=== PATIENT | female | born 1950 | race Caucasian/White ===

== ENCOUNTER 2018-11-02 11:18 | Emergency (ER) | payer MEDICARE, OTHER, SELFPAY ==
[2018-11-02 11:18] VITALS: BP 150/92; PULSE 92; RESP 14; TEMP 36.5; O2SAT 94; BMI 31.6
--- NOTE | 2018-11-02 11:55 | ED.RN ---
WENT IN TO ASSESS PT AND SHE IS RELUCTANT TO ANSWER ANY QUESTIONS OR ALLOW AN ASSESSMENT TO BE DONE. STATES SHE JUST HAS A HEADACHE. UNABLE TO PROVIDE A MEDICATION LIST AND SAYS ALL OF HER INFORMATION IS IN THE COMPUTER. EXPLAINED THE IMPORTANCE OF VERIFYING THIS INFORMATION AND PT DIDN'T COOPERATE WITH THAT.
--- NOTE | 2018-11-02 12:13 | CT_ITS ---
STUDY: CT BRAIN WITHOUT CONTRAST REASON FOR EXAM: Female, 68 years old. 4 day history of headaches. Patient has a history of metastatic endometrial carcinoma. RADIATION DOSAGE (If Supplied By Facility): CTDIvol = ( 44.99 ) mGy, DLP = ( 829.85 ) mGycm TECHNIQUE: Transaxial CT imaging of the brain was performed without administration of intravenous contrast material. Individualized dose optimization techniques were used for this CT. COMPARISON: No relevant priors. FINDINGS: Normal soft tissue structures. Normal calvarium. There is mild cerebral atrophy with widening of the extra-axial spaces and ventricular dilatation. There is a 9 mm rounded hypodensity in the deep left parietal lobe suggestive of an old lacunar infarct. There is also evidence of an old lacunar infarct in the insular cortex of the left temporal lobe. Normal basal ganglia and thalami. Normal brainstem. Normal cerebellum. There is no intracranial hemorrhage. There are no findings of an acute ischemic infarction. Normal visualized paranasal sinuses. CT/Brain/Head without Contrast IMPRESSION: Chronic involutional changes of the brain. Electronically Signed: Prateek Palma, at 13:06 EDT , Service support ,
[2018-11-02] MEDS: 0.9% Normal Saline 1,000 ML 999 ML IV (12:57)
[2018-11-02] MEDS: proCHLORPERazine 10 MG/2 ML Vial IV (12:58)
[2018-11-02] MEDS: DiphenhydrAMINE 50 MG/ML Syringe 25 MG IV (12:58)
[2018-11-02 13:18] VITALS: PULSE 85; RESP 16; O2SAT 95
[2018-11-02 13:40] VITALS: BP 120/62
[2018-11-02] MEDS: Ketorolac 15 MG/ML Vial IV (13:47)
--- NOTE | 2018-11-02 13:48 | ED.VISSUMM ---
- ER Visit Summary Date of Service: 11/02/18 Chief Complaint: Headache History of Present Illness: The patient is a 68 F who presents with a headache that has been constant for the past 3 to 4 days. Patient states the pain has gradually gotten worse. The patient states the pain is over the right side of her head and radiates into her neck. Patient describes the pain as dull and burning. Patient states the pain is improved with certain positions. Patient admits to some nausea and vomiting. Patient denies any paresthesias or weakness. Patient denies any visual changes. Physical Examination: Vital signs are stable. Patient is afebrile. Patient is in no acute distress. Oral mucosa is pink and moist. Neck is supple. Trachea is midline. There is no JVD noted. There is some right cervical paraspinal tenderness. There is no midline tenderness. There is no bony crepitance or step-off. Heart was regular rate and rhythm. Lungs are clear and equal bilateral. Cranial nerves II through XII are intact. There are no focal motor or sensory deficits noted. Test Results: CT scan of the brain was obtained. There is no acute intracranial abnormality noted. Emergency Department Course and Treatment: Patient was given IV fluids, Compazine, and Benadryl. Patient states her headache was improving. Patient was given a dose of Toradol here. Patient was instructed to rest in a dark quiet room. Patient was instructed to follow-up with her primary care physician in 5 to 7 days. Patient understood and was agreeable with the plan. All questions were answered. Disposition: Discharge home Impression: Headache This note was generated with [employer] dictation software. It may contain incorrect words, spelling, and punctuation that were not noted in review of the chart prior to signing ED Disposition - Plan for ED Patient: Disposition: Home or Assisted Living Diagnosis: Headache Instructions: ED Cephalgia Unspecified Referrals: Nemesio Nguyen MD [Primary Care Provider] - 5-7 Days
--- NOTE | 2018-11-02 13:51 | ED.DCSUM_ITS ---
- ER Visit Summary Date of Service: 11/02/18 Chief Complaint: Headache History of Present Illness: The patient is a 68 F who presents with a headache that has been constant for the past 3 to 4 days. Patient states the pain has gradually gotten worse. The patient states the pain is over the right side of h er head and radiates into her neck. Patient describes the pain as dull and burning. Patient states the pain is improved with certain positions. Patient admits to some nausea and vomiting. Patient denies any paresthesias or weakness. Patient denies any visual changes. Physical Examination: Vital signs are stable. Patient is afebrile. Patient is in no acute distress. Oral mucosa is pink and moist. Neck is supple. Trachea is midline. There is no JVD noted. There is some right cervical paraspinal tenderness. There is no midline tenderness. There is no bony crepitance or step-off. Heart was regular rate and rhythm. Lungs are clear and equal bilateral. Cranial nerves II through XII are intact. There are no focal motor or sensory deficits noted. Test Results: CT scan of the brain was obtained. There is no acute intracranial abnormality noted. Emergency Department Course and Treatment: Patient was given IV fluids, Compazine, and Benadryl. Patient states her headache was improving. Patient was given a dose of Toradol here. Patient was instructed to rest in a dark quiet room. Patient was instructed to follow-up with her primary care physician in 5 to 7 days. Patient understood and was agreeable with the plan. All questions were answered. Disposition: Discharge home Impression: Headache This note was generated with [employer] dictation software. It may contain incorrect words, spelling, and punctuation that were not noted in review of the chart prior to signing ED Disposition - Plan for ED Patient: Disposition: Home or Assisted Living Diagnosis: Headache Instructions: ED Cephalgia Unspecified Referrals: Nemesio Nguyen MD [Primary Care Provider] - 5-7 Days
[2018-11-02 14:01] VITALS: BP 120/62; PULSE 85; RESP 16; O2SAT 95
== END 2018-11-02 14:03 | disposition home or self-care (01) ==
PROVIDERS: Emergency Provider Emergency Medicine; Family Provider Family Medicine; PCP Family Medicine
DX: R51 Headache (principal); R11.2 Nausea with vomiting, unspecified; M54.2 Cervicalgia; Z85.05 Personal history of malignant neoplasm of liver; Z85.118 Personal history of other malignant neoplasm of bronchus and lung
CPT/HCPCS: 70450; 96361; 96374; 96375; 99284; J7030; A4216

== ENCOUNTER 2018-11-22 15:05 | Inpatient (IN) | payer MEDICARE, OTHER, SELFPAY ==
[2018-11-22] VITALS (12 sets, daily range): BP systolic 83–120; BP diastolic 65–81; PULSE 100–105; RESP 16–33; TEMP 36.3–36.9; O2SAT 83–96; BMI 29.2; BMI 31.6; BMI 31.7
--- NOTE | 2018-11-22 | IMM_PTH ---
PATIENT: LALO PUENTE LOC: PCU U#:[id number] AGE/SX: 68/F ROOM: [facility] RE11/22/[address]: Dr. Shyann Sotelo MD : 1950 BED: 1 DIS: 11/24/2018 SPEC #: [id number] RECD: 11/24/18 10:25 STATUS: SOURizwan REQ #: [id number] VEDA: 11/22/18 00:[address]: Shyann Sotelo DEPT: IMMUNOHISTOCHEMISTRY RECD BY: Deepa Fermin ENTERED: 11/24/18 10:28 SP TYPE: IMMUNO OTHR DR: DO Dr. Nemesio Santiago MD Dr. Nicholas F Kotsonis, MD Tissues: THORACIC FLUID Procedures: RCC (add) NAPSIN A (add) Jay Ret (add) CD20 (add) CD3 (add) CD45 (add) CD5 (add) CD79A (add) CK20 (add) CK5-6 (add) CK7 (add) CK8 (add) HEP PAR (add) MACRO (add) IN (add) TTF1 (add) Vimentin (add) Pankeratin (add) P40 (add) ER (initial) PHYSIC[facility] [place] [id number] SPECIMEN INFORMATION: Tissue Source: Thoracentesis fluid Clinical Info: Acute renal failure, pleural effusion Specimen Number: [id number] CPT code: 41696, 32580 x19 METHODOLOGY: Deparaffinized sections of prefer/formalin-fixed tissue or PAP/DQ stained slides are incubated with monoclonal/polyclonal antibodies/oligonucleotide probes. Localization is made via biotin free immunoperoxidase method. Appropriate controls are performed and reacted as expected. Results on target cell population are indicated in the following table: RESULTS: ANTIBODY / CLONE RESULT ER (6F11) negative IN (1E2) negative AE1-3 (AE1/AE3/PCK26) negative (positive in mesothelial cells) CK7 (OV-TL12/30) negative (positive in mesothelial cells) CK8 (61sqfnI73) negative (positive in mesothelial cells) CK20 (KS20.8) negative (positive in mesothelial cells) CD45 (RP2/18) negative (positive in lymphocytes) Vimentin (V9) negative TTF-1 (8G7G3/1) negative Napsin A (Rabbit Polyclonal) negative HepPar (OCh1E5) negative RCC (PN-15) negative CALRET (polyclonal) negative (positive in mesothelial cells) CK5-6 (D5 & 1684) negative (positive in mesothelial cells) P40 (BC28) negative CD3 (PS1) negative (positive in small lymphocytes) CD5 (SP10) negative (positive in small lymphocytes) CD20 (L26) negative CD79a (11E3) negative Macro (HAM-56) negative These tests were developed and their performance characteristics determined by [facility]. They may not have been cleared or approved by the U.S. Food and Drug Administration. The FDA has determined that such clearance or approval is not necessary. INTERPRETATION: Thoracentesis fluid: A few degenerated epithelioid cells are noted. See comment. SJ:luda 11/29/18 IHC is noncontributory. Case has been reviewed in consultation with Dr. Hamlin who concurs with the above diagnosis. IDC:AM
--- NOTE | 2018-11-22 | FLU_PTH ---
PATIENT: LALO PUENTE LOC: [facility] U#:[id number] AGE/SX: 68/F ROOM: [facility] RE11/22/[address]: Dr. Shyann Sotelo MD : 1950 BED: 1 DIS: 11/24/2018 SPEC #: [id number] RECD: 11/22/18 18:50 STATUS: GORDON REEbony #: [id number] VEDA: 11/22/18 00:[address]: Shyann Sotelo DEPT: CYTOLOGY RECD BY: Jayesh Parekh ENTERED: 11/23/18 09:06 SP TYPE: Fluid OTHR DR: MD Dr. Dave Anderson MD Tissues: THORACIC FLUID Procedures: Special Stain Group II Surgery Specimen Level IV Cytospin Fluid HEADER OPERATION: Thoracentesis PRE-OP DIAGNOSIS: Acute renal failure and pleural effusion TISSUE SUBMITTED: Thoracentesis fluid for cytology DIAGNOSIS CYTOLOGY Thoracentesis fluid for cytology (cytospin and cell block): A few degenerated epithelioid cells are noted. See comment. SIXTO:luda 11/29/18 COMMENT Immunohistochemistry ([id number]) is noncontributory. 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 Correlation with clinical, radiologic findings and appropriate follow up are necessary. Case has been reviewed in consultation with Dr. Hamlin who concurs with the above diagnosis. IDC:AM CYTOLOGY STUDY Slides are reviewed. CYTOLOGY GROSS Received is 12 ml of red cloudy fluid labeled with the patient's name and and designated per the requisition as thoracic fluid. Submitted for cytology preparation including cell block. / CC:cc 11/23/18 TC:?Cannot code CPT: 45341, 25171
--- NOTE | 2018-11-22 15:32 | EKG12_ITS ---
Test Reason : CP ADMIT Blood Pressure : / mmHG Vent. Rate : 099 BPM Atrial Rate : 099 BPM P-R Int : 150 ms QRS Dur : 080 ms QT Int : 364 ms P-R-T Axes : 034 000 064 degrees QTc Int : 467 ms Normal sinus rhythm Inferior infarct , age undetermined Anteroseptal infarct , age undetermined Abnormal ECG Confirmed by TAQUERIA CORTÉS, ALTA ([id number]), food editor REINALDO MATT ([id number]) on 11/26/2018 7:06:26 AM Referred By: Dave Hogan Confirmed By:ALTA MENG MD
--- NOTE | 2018-11-22 15:45 | RAD_ITS ---
STUDY: X-RAY CHEST REASON FOR EXAM: Female, 68 years old. Shortness of breath, progressively getting worse. TECHNIQUE: Single frontal view of the chest. COMPARISON: None. FINDINGS: There is low volume to the left lung field. There are at least 2 pulmonary nodules projected over the left upper lung, the largest of which measures approximately 3 cm in widest diameter and is projected over the left upper lobe. There is a large right pleural effusion with compression atelectasis of the right upper, right middle and right lower lobes. There is cardiomegaly. Normal mediastinum and daisy. Normal visualized pulmonary arteries. There is atherosclerotic calcification of the aortic arch with tortuosity. Normal visualized thoracic spine. Normal visualized ribs, clavicles, and shoulders. There is no demonstrated abnormality of the visualized soft tissue structures of the upper abdomen. RAD/Chest 1 View (Portable) IMPRESSION: Large right pleural effusion with at least 2 pulmonary nodules projected over the left lung. Findings are highly suspicious for metastatic disease. If the patient does not have a known primary, a chest CT with contrast would be appropriate for further delineation of these findings. Electronically Signed: Nimesh Bautista MD at 15:59 EDT , Service support ,
--- NOTE | 2018-11-22 15:46 | ED.DCSUM_ITS ---
- ER Visit Summary Date of Service: 11/22/18 Chief Complaint: Shortness of breath History of Present Illness: The patient is a 68 F with what sounds like endometrial cancer and metastases to lung and liver presents with shortness of breath. She underwent radiation but no chemotherapy. Shortness of breath has been progressing over the past few days. She has no fever or chills. She has cough which is mostly nonproductive. She has bilateral lower extremity edema she has been also somewhat chronic. Physical Examination: She appears in some distress Pale conjunctiva Dry mucous membranes, no obvious facial deformity No C-spine tenderness supple neck. Regular rate and rhythm without any obvious murmurs Course lungs bilaterally speaking in 2-3 word sentences, somewhat diminished breath sounds on the right Abdomen soft and nontender no guarding or rebound Moves all extremities without any difficulty or pain. Skin is quite a bit of pallor No gross focal deficit Emergency Department Course and Treatment: Patient is found to have a right pleural effusion, this was drained by surgery, I reevaluated her and her shortness of breath improved, I looked at the chest x- ray which showed significant improvement, however patient continued to feel significantly weak, she was slightly hypotensive, improved with fluids, patient will be admitted. Treatment Plan: Disposition: Admit stable condition Impression: Pleural effusion Metastatic endometrial cancer This note was generated with [employer] dictation software. It may contain incorrect words, spelling, and punctuation that were not noted in review of the chart prior to signing ED Disposition - Plan for ED Patient: Referrals: Nemesio Nguyen MD [Primary Care Provider] -
[2018-11-22] MEDS: Ondansetron 4 MG/2 ML Vial IV (16:09)
[2018-11-22 16:18] LABS: ALB/GLOB Ratio 0.5 RATIO (0.9-2.4); AST(SGOT) 177 U/L (15-37); Alanine Aminotransfer ALT/SGPT 36 U/L (13-56); Alkaline Phosphatase 983 U/L (45-117); Anion Gap 12 (5-15); BUN 44 mg/dL (7-18); BUN/Creat Ratio 17.2 RATIO (10-20); Calcium,Total 8.7 mg/dL (8.5-10.1); Chloride 93 mmol/L (98-107); Creatinine, Serum 2.56 mg/dL (0.55-1.02); EST Glomerular Filtration Rate 20 mL/min (>60); Est Glom Filt Rate - Afr Amer 24 mL/min (>60); Estimated Creatinine Clearance 23.06 ml/min; Globulin 4.3 g/dL (2.2-4.2); Glucose 114 mg/dL (74-106); Potassium 3.4 mmol/L (3.5-5.1); Protein, Total 6.3 g/dL (6.4-8.2); Sodium Level 130 mmol/L (136-145)
[2018-11-22 16:30] LABS: Hematocrit 30.8 % (37-47); Hemoglobin 9.8 g/dl (12.0-15.0); Mean Corp Hgb Conc 31.8 g/gl (32-36); Mean Corpuscular Hgb 22.8 pg (27.0-32.0); Mean Corpuscular Volume 71.8 fL (81-99); Mean Platelet Vol. 9.1 fl (6.2-12.0); Platelet Count 119 K/mm3 (150-450); RBC Distribution Width CV 21.2 % (11.6-14.6); RBC Distribution Width SD 53.1 fl (35.1-43.9); Red Blood Count 4.29 M/mm3 (4.2-5.4)
[2018-11-22 16:34] LABS: International Normalized Ratio 1.4; Prothrombin Time (Protime)PT. 16.7 SECONDS (11.7-14.9)
[2018-11-22 16:39] LABS: Differential Indicated MANUAL DIFF; POSITIVE COUNT NO; POSITIVE DIFFERENTIAL NO; POSITIVE MORPHOLOGY YES
[2018-11-22 16:48] LABS: Mucous, Urine 0 SEEN /hpf (<or=2+); Red Blood Cells-Urine 0 SEEN /hpf (0-5)
[2018-11-22 17:06] LABS: Color, Urine Amber (Yellow); Glucose, Dipstick Normal (Normal); Ketone-Dipstick 5 mg/dl (Negative); Leukocyte Esterase-Dipstick 25 /ul (Negative); Nitrite-Dipstick Negative (Negative); Occult Blood-Urine 10 /ul (Negative); Protein-Dipstick 30 mg/dl (Negative); Specific Gravity, Urine 1.025 (1.002-1.030); Urine Clarity Cloudy (Clear); Urine Urobilinogen 8 mg/dl (Normal)
[2018-11-22 17:07] LABS: Urine Bilirubin Dipstick 3 mg/dL (Negative)
[2018-11-22 17:11] LABS: Amorphous Sediment 1+; Bacteria 4+ /hpf (None Seen); Squamous Epithelial Cells - UA 0-5 SEEN /hpf (5-10); White Blood Cells 0-5 SEEN /hpf (0-5)
[2018-11-22 17:13] LABS: Lymphocyte 6 % (19-41); Metamyelocyte 7 % (0-1); Monocyte 17 % (0-10); Myelocyte 4 (0-0); Neutrophil-Band 19 % (0-5); Neutrophil-Segmented 47 % (47-70); Total Cells Counted 100 (MANUAL DIFF)
[2018-11-22 17:14] LABS: Absolute Nucleated RBC Count 0.18 10^3/uL (0-5); NRBC Flagged by Analyzer 1.2 % (0-5)
[2018-11-22 17:16] LABS: Absolute Neutrophil Count 11.6 X10^3/uL (2.0-7.7); Neutrophil # 11.55 X10^3/uL (2.7-7.7)
[2018-11-22 17:17] LABS: Anisocytosis 1+; Hypochromasia 1+; Microcytosis 3+; Platelet Estimate SLT DEC (ADEQ); Polychromasia RARE
--- NOTE | 2018-11-22 18:10 | RAD_ITS ---
STUDY: X-RAY CHEST REASON FOR EXAM: Female, 68 years old. Post thoracentesis TECHNIQUE: Frontal portable view of the chest was performed COMPARISON: 22 November 2018 FINDINGS: Right pleural effusion has significantly decreased and is likely now only moderate in extent with predominately subdiaphragmatic distribution. There is no pneumothorax. There is no left pleural effusion. There is a left upper lobe mass. The second more ill-defined opacity in the left midlung zone is not as well seen. RAD/Chest 1 View (Portable) IMPRESSION: 1. Marketed reduction in the right pleural effusion. 2. No pneumothorax. 3. Left upper lung focal opacity, unknown etiology, refer to CT chest with contrast for definitive diagnosis. Differential diagnosis includes benign entities, such as pneumonia, loculated fluid, versus malignant, such as lung cancer. Electronically Signed: Sheron Pope, at 18:56 EDT Tel , Service support ,
--- NOTE | 2018-11-22 18:18 | PCM.OPRPT ---
Report of Operation Date of Procedure: 11/22/18 Pre-Operative Diagnosis: right pleural effusion, metastatic cancer (endometrial) Post-Operative Diagnosis: same Surgery/Procedure Performed:: right thoracocentesis Description of Surgical Findings:: drainage of 1 liter of serosanguinous fluid Type of Anesthesia:: Local - 2% xylocaine Specimen's removed: right pleural fluid Estimated Blood Loss (mL): minimal Fluids Replaced: 100 cc RL Description of Procedure: After informed consent was obtained, the patient was placed in the upright sitting position. After proper time out protocol was followed, anatomical landmarks were identified for location of catheter insertion site. The skin and subcutaneous tissues at the site was infiltrated with local anesthetic. A small skin incision was made with an 11 blade scalpel. An needle trocar with 18 Fr catheter was then inserted into the pleural space and there was aspiration of pleural fluid. The catheter was then threaded to the dependent portion of the thoracic cavity. The pleural fluid was then drained - 1000 ml of serosanguinous fluid was obtained. The catheter was removed and dressing was applied to the area. Patient tolerated procedure well. - Complications none noted
--- NOTE | 2018-11-22 18:48 | ED.RN ---
PT'S HEART RATE ACCELERATED TO 190 DOWN TO [address] PATEL WAS INFORMED, EKG OBTAINED. PT CURRENTLY RESTING QUIETLY WITH PULSE OF 100.
[2018-11-22 18:55] LABS: Cytology, Body Fluid / CSF SEE PATHOLOGY REPORT
--- NOTE | 2018-11-22 20:00 | EKG12_ITS ---
Test Reason : Blood Pressure : / mmHG Vent. Rate : 101 BPM Atrial Rate : 101 BPM P-R Int : 150 ms QRS Dur : 080 ms QT Int : 308 ms P-R-T Axes : 024 -04 053 degrees QTc Int : 399 ms Sinus tachycardia Inferior infarct , age undetermined Anteroseptal infarct , age undetermined Abnormal ECG Confirmed by TAQUERIA CORTÉS, ALTA ([id number]), visual effects editor REINALDO MATT ([id number]) on 11/26/2018 6:27:14 AM Referred By: Dave Hogan Confirmed By:ALTA MENG MD
--- NOTE | 2018-11-22 20:06 | EKG12_ITS ---
Test Reason : CP/SOB Blood Pressure : / mmHG Vent. Rate : 101 BPM Atrial Rate : 101 BPM P-R Int : 146 ms QRS Dur : 082 ms QT Int : 334 ms P-R-T Axes : 033 013 -09 degrees QTc Int : 433 ms Sinus tachycardia Septal infarct , age undetermined Cannot rule out Inferior infarct , age undetermined Abnormal ECG Confirmed by TAQUERIA CORTÉS, ALTA ([id number]), communications editor REINALDO MATT ([id number]) on 11/26/2018 6:26:54 AM Referred By: Dave Hogan Confirmed By:ALTA MENG MD
--- NOTE | 2018-11-22 20:10 | PCM.HP.STD ---
Problem List (1) Depression Status: Acute (2) GERD (gastroesophageal reflux disease) Status: Acute (3) Endometrial cancer Status: Acute (4) Pleural effusion Status: Acute History of Present Illness Date of Admission: 11/22/18 Chief Complaint: Shortness of breath The patient is a 68 year old F who has a history of endometrial cancer that had been resected and she had undergone chemotherapy, presents with shortness of breath, fatigue, weakness. She has had metastasis of her original endometrial cancer with extensive lesions in the liver and in the left lung. She also had metastasis to the vaginal cuff that she has been having significant vaginal bleeding. She is undergone further biopsies and is found to have a cancer that would make her a candidate for immunotherapy which is somewhat tolerable. She also completed radiation to her liver. This radiation that may explain the pleural effusion which was drained in the ER by Dr. Maza prior to admission. This was sent down to pathology for cytology. In the ER she was found to have a leukocytosis as well as anemia with an MCV of 71.8, of note her alk phos is 983, her AST is 177, her total bilirubin is 1.6, and her INR is 1.4 though she is not on Coumadin. Also she has a new onset renal failure with a creatinine of 2.56, and she is expressing significant fatigue and weakness for the last several days. Past Medical History Allergies No Known Allergies Allergy (Verified 11/22/18 15:06) Home Medications: Ambulatory Orders Medication Instructions Recorded Diclofenac [Voltaren] 75 mg PO BID 11/22/18 Escitalopram Oxalate [Lexapro] 20 mg PO DAILY 11/22/18 Famotidine [Pepcid] 20 mg PO QHS PRN 11/22/18 Gabapentin [Neurontin] 800 mg PO BID 11/22/18 Multivitamin [Multivitamins] 1 each PO DAILY 11/22/18 Oxycodone HCl/Acetaminophen 1 each PO Q8H PRN 11/22/18 [Percocet 5-325 mg Tablet] Oxycodone [Oxyir] 5 mg PO Q8H PRN PRN 11/22/18 Prochlorperazine Maleate 10 mg PO Q6H PRN 11/22/18 [Compazine] Senna/Docusate Sodium [Senokot-S, 2 tablet PO QHS 11/22/18 Denisse-Colace] Surgical History: hysterectomy Smoking Status: Never smoker Alcohol: None Drugs: None - *Family History Maternal History Items: No pertinent history Paternal History Items: No pertinent history Review of Systems Constitutional: Reports: Weakness, Fatigue. Denies: Chills, Fever, Weight Change HEENT: Denies: Head Aches, Sinus Congestion, Sinus Drainage Cardiovascular: Denies: Chest Pain, Palpitations Respiratory: Reports: Shortness of Breath. Denies: Cough, Shortness of breath at rest, Sputum production Gastrointestinal: Denies: Abdominal Pain, Nausea, Vomiting Genitourinary: Denies: Dysuria Musculoskeletal: Denies: Joint Pain, Joint Tenderness Skin: Denies: Rash, Wounds Neurological: Denies: Numbness, Tingling, Focal weakness Psychiatric: Denies: Anxiety, Depression Hematologic/ Lymphatic: Denies: Easy Bruising, Easy Bleeding VTE Information - Inpt Only VTE Present on Admission: No Patient Problems: Active and Suspected Problems Depression (Acute) GERD (gastroesophageal reflux disease) (Acute) Endometrial cancer (Acute) Pleural effusion (Acute) - Physical Exam General: Alert, Oriented x3, Cooperative, No apparent distress, - - Slow in her responses, pale HEENT: Atraumatic, PERRLA, EOMI, Normocephalic Oral: Dry Mucosa Neck: Supple, No JVD Lungs: Clear to auscultation, Normal air movement, No rhonchi, No wheeze, No rales, Diminished Cardiovascular: Regular rate, Regular Rhythm, Normal S1, Normal S2, No murmurs Abdomen: Soft, Non Tender, Non-Distended, No Hepato-splenomegaly Extremities: Capillary Refill Less than 3 Seconds, Edema - 1+ nonpitting Skin: No rashes, No breakdown Neurological: Sensory exam intact to light touch and pain, - - 4-/5 b/l LE Psych/Mental Status: Appropriate, Flat Affect Vital Signs Temp Pulse Resp BP Pulse Ox 97.5 F L 101 H 16 95/65 96 11/22/18 15:07 11/22/18 19:00 11/22/18 19:00 11/22/18 19:00 11/22/18 19:00 Oxygen Flow Rate (L/min) 4 Oxygen Delivery Method Nasal Cannula Weight: 196 lb 6.91 oz Body Mass Index (BMI) 31.6 Laboratory Tests Past 24 Hrs 11/22/18 11/22/18 11/22/18 15:45 15:45 15:45 WBC 15.0 H RBC 4.29 Hgb 9.8 L Hct 30.8 L MCV 71.8 L MCH 22.8 L MCHC 31.8 L RDW 21.2 H RDW Differential 53.1 H Plt Count 119 L MPV 9.1 Neut % (Auto) Not Reportable Absolute Neuts (auto) 11.6 H Absolute Lymphs (auto) 0.90 Total Counted 100 Neutrophils % (Manual) 47 Band Neutrophils % 19 H Lymphocytes % (Manual) 6 L Monocytes % (Manual) 17 H Metamyelocytes % 7 H Myelocytes % 4 H Nucleated RBC % 1.2 Platelet Estimate SLT DEC Polychromasia RARE Hypochromasia 1+ Anisocytosis 1+ Microcytosis 3+ Absolute Retic 0.18 PT 16.7 H INR 1.4 APTT 36.0 Sodium 130 L Potassium 3.4 L Chloride 93 L Carbon Dioxide 25.0 Anion Gap 12 BUN 44 H Creatinine 2.56 H Estim Creat Clear Calc 23.06 Est GFR (MDRD) Af Amer 24 L Est GFR (MDRD) Non-Af 20 L BUN/Creatinine Ratio 17.2 Glucose 114 H Calcium 8.7 Total Bilirubin 1.60 H AST 177 H ALT 36 Alkaline Phosphatase 983 H Troponin I < 0.015 Total Protein 6.3 L Albumin 2.0 L Globulin 4.3 H Albumin/Globulin Ratio 0.5 L Urine Color Urine Clarity Urine pH Ur Specific [place] Urine Protein Urine Glucose (UA) Urine Ketones Urine Occult Blood Urine Nitrite Urine Bilirubin Urine Urobilinogen Ur Leukocyte Esterase Urine RBC Urine WBC Ur Squamous Epith Cells Amorphous Sediment Urine Bacteria Urine Mucus Miscellaneous Cytology Blood Type Antibody Screen 11/22/18 11/22/18 11/22/18 15:45 16:45 17:50 WBC RBC Hgb Hct MCV MCH MCHC RDW RDW Differential Plt Count MPV Neut % (Auto) Absolute Neuts (auto) Absolute Lymphs (auto) Total Counted Neutrophils % (Manual) Band Neutrophils % Lymphocytes % (Manual) Monocytes % (Manual) Metamyelocytes % Myelocytes % Nucleated RBC % Platelet Estimate Polychromasia Hypochromasia Anisocytosis Microcytosis Absolute Retic PT INR APTT Sodium Potassium Chloride Carbon Dioxide Anion Gap BUN Creatinine Estim Creat Clear Calc Est GFR (MDRD) Af Amer Est GFR (MDRD) Non-Af BUN/Creatinine Ratio Glucose Calcium Total Bilirubin AST ALT Alkaline Phosphatase Troponin I Total Protein Albumin Globulin Albumin/Globulin Ratio Urine Color Bridgett Urine Clarity Cloudy Urine pH 5.0 Ur Specific [place] 1.025 Urine Protein 30 H Urine Glucose (UA) Normal Urine Ketones 5 H Urine Occult Blood 10 H Urine Nitrite Negative Urine Bilirubin 3 H Urine Urobilinogen 8 H Ur Leukocyte Esterase 25 H Urine RBC 0 SEEN Urine WBC 0-5 SEEN Ur Squamous Epith Cells 0-5 SEEN Amorphous Sediment 1+ Urine Bacteria 4+ Urine Mucus 0 SEEN Miscellaneous Cytology Pending Blood Type A POSITIVE Antibody Screen NEGATIVE Assessment/Plan All Active Problems Depression (Acute) GERD (gastroesophageal reflux disease) (Acute) Endometrial cancer (Acute) Pleural effusion (Acute) 1. Endometrial cancer s/p resection with metastatic disease to the vaginal cuff, left lung and liver/acute hypoxic respiratory failure secondary to right pleural effusion s/p thoracentesis -She has undergone radiation of the liver which she finished -Candidate for immunotherapy per my discussion with Dr. Engel -S/p therapeutic thoracentesis in the ER, sent for cytology -Wean O2 as able -C/w IVF@125cc for her transient hypotension after the procedure, she also had few second episode of SVT and is therefore admitted to PCU with a phos and mag pending 2. Acute renal failure unknown etiology/Iron deficiency anemia - She received a 500 cc bolus in the ER - C/w IVF - Per oncology, will proceed with 3 daily doses of venofer hemoglobin today is 9.8 with an MCV of 71.8. - Will monitor creatinine, if necessary can obtain a renal ultrasound if creatinine stays elevated 3. Elevated LFTs -AST is 177 with total bilirubin 1.6 and an alkaline phosphatase of 983 -Repeat CMP in a.m. likely -Likely related to her liver met and recent radiation 4. Leukocytosis -White blood cell count is 15 -Probably reactive however there is 25 leukocyte esterase and 4+ bacteria seen on her urine sample -We will send for culture but hold off on antibiotics until necessary 5. GERD -Stable -Continue with Pepcid DVT: Lovenox Code Visit Inpatient E&M: 99060 Init Hosp L3
[2018-11-22] MEDS: oxyCODONE 5 MG Tablet PO (20:43)
[2018-11-22] MEDS: 0.9% Normal Saline 1,000 ML 125 ML IV (20:44)
[2018-11-22 20:56] LABS: Magnesium 2.5 mg/dL (1.6-2.6); Phosphorus 3.8 mg/dL (2.5-4.9)
[2018-11-22] MEDS: Escitalopram Oxalate 20 MG Tablet PO (23:27)
[2018-11-22] MEDS: Gabapentin 800 MG Tablet PO (23:28)
[2018-11-23] VITALS (13 sets, daily range): BP systolic 103–127; BP diastolic 53–79; PULSE 97–157; RESP 14–20; TEMP 36.4–36.8; O2SAT 92–96
[2018-11-23] MEDS: oxyCODONE 5 MG Tablet PO ×2 (01:17→12:55)
[2018-11-23 03:57] LABS: ALB/GLOB Ratio 0.5 RATIO (0.9-2.4); AST(SGOT) 166 U/L (15-37); Alanine Aminotransfer ALT/SGPT 34 U/L (13-56); Albumin, Serum 1.8 g/dL (3.2-5.0); Alkaline Phosphatase 869 U/L (45-117); Anion Gap 10 (5-15); BUN 47 mg/dL (7-18); Calcium,Total 8.4 mg/dL (8.5-10.1); Chloride 98 mmol/L (98-107); Creatinine, Serum 2.14 mg/dL (0.55-1.02); EST Glomerular Filtration Rate 24 mL/min (>60); Est Glom Filt Rate - Afr Amer 30 mL/min (>60); Estimated Creatinine Clearance 23.88 ml/min; Globulin 3.9 g/dL (2.2-4.2); Glucose 89 mg/dL (74-106); Potassium 3.5 mmol/L (3.5-5.1); Protein, Total 5.7 g/dL (6.4-8.2); Sodium Level 134 mmol/L (136-145)
[2018-11-23 04:48] LABS: Hematocrit 27.7 % (37-47); Hemoglobin 8.8 g/dl (12.0-15.0); Mean Corp Hgb Conc 31.8 g/gl (32-36); Mean Corpuscular Hgb 22.6 pg (27.0-32.0); Mean Corpuscular Volume 71.2 fL (81-99); Platelet Count 93 K/mm3 (150-450); RBC Distribution Width CV 21.3 % (11.6-14.6); RBC Distribution Width SD 52.7 fl (35.1-43.9); Red Blood Count 3.89 M/mm3 (4.2-5.4); White Blood Count 13.5 K/mm3 (4.4-11.0)
[2018-11-23 04:50] LABS: Differential Indicated MANUAL DIFF; POSITIVE COUNT NO; POSITIVE DIFFERENTIAL NO; POSITIVE MORPHOLOGY YES
[2018-11-23 05:05] LABS: Lymphocyte 3 % (19-41); Metamyelocyte 5 % (0-1); Monocyte 9 % (0-10); Myelocyte 5 (0-0); Neutrophil-Band 15 % (0-5); Neutrophil-Segmented 63 % (47-70); Total Cells Counted 100 (MANUAL DIFF)
[2018-11-23 05:07] LABS: Absolute Lymphocyte Count 0.41 X10^3/ul (0.83-4.51); Absolute Neutrophil Count 10.7 X10^3/uL (2.0-7.7)
[2018-11-23 05:08] LABS: Anisocytosis RARE; Hypochromasia RARE; Microcytosis RARE; Platelet Estimate MOD DEC (ADEQ)
[2018-11-23] MEDS: 0.9% Normal Saline 1,000 ML 125 ML IV ×3 (05:22→21:41)
--- NOTE | 2018-11-23 09:43 | PCM.PN.HOSP ---
Patient Problems: Active and Suspected Problems Depression (Acute) GERD (gastroesophageal reflux disease) (Acute) Endometrial cancer (Acute) Pleural effusion (Acute) Subjective: Patient seen and examined. She was admitted with a complaint of shortness of breath. She just had right-sided thoracentesis for right pleural effusion due to metastatic endometrial cancer with drainage of 1 L of serosanguinous fluid. Subsequently started feeling short of breath and so was admitted. Patient seen and examined this morning. She is very lethargic. She had no active complaints. She denied any fever or chills and says shortness of breath that improved. She denied any chest pain or palpitations, dizziness, diarrhea or vomiting. 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 Labs and vitals reviewed. Vitals/I&O's: Vital Signs Temp Pulse Resp BP Pulse Ox 97.8 F 97 16 114/68 94 11/23/18 03:37 11/23/18 07:14 11/23/18 03:37 11/23/18 03:37 11/23/18 03:37 Oxygen Flow Rate (L/min) 3 Oxygen Delivery Method Nasal Cannula Weight: 196 lb 6.91 oz Body Mass Index (BMI) 31.6 Intake and Output for Last 24 Hours 11/21/18 11/22/18 11/23/18 23:59 23:59 23:59 Intake Total 950 / 950 910 / 910 Output Total 0 / 0 0 / 0 Balance 950 / 950 910 / 910 General: Alert, Cooperative, Lethargic HEENT: Atraumatic, PERRLA, EOMI, Normocephalic, - - jaundiced sclera Oral: Dry Mucosa Neck: Supple, No JVD, Negative Carotid Bruits Lungs: - - decreased breath sounds bibasally, no wheezes. Few crackles bibasally. On 2L of oxygen. Cardiovascular: Regular rate, Regular Rhythm, Normal S1, Normal S2, No murmurs Abdomen: Bowel Sounds Present, Soft, Non Tender, Non-Distended, No Hepato-splenomegaly Extremities: No cyanosis, No edema, Capillary Refill Less than 3 Seconds Skin: No rashes, No breakdown Musculoskeletal: No Tenderness to Palpation of Joints or Extremities Lymphatic: No Cervical, Supraclavicular, or Inguinal Adenopathy Neurological: Cranial nerves II-XII grossly intact, Neuro grossly intact, Motor Exam 5/5 strength throughout Psych/Mental Status: - - very weak and lethargic Laboratory Results 11/22/18 15:45: WBC 15.0 H, RBC 4.29, Hgb 9.8 L, Hct 30.8 L, MCV 71.8 L, MCH 22.8 L, MCHC 31.8 L, RDW 21.2 H, RDW Differential 53.1 H, Plt Count 119 L, MPV 9.1, Neut % (Auto) Not Reportable, Absolute Neuts (auto) 11.6 H, Absolute Lymphs (auto) 0.90, Total Counted 100, Neutrophils % (Manual) 47, Band Neutrophils % 19 H, Lymphocytes % (Manual) 6 L, Monocytes % (Manual) 17 H, Metamyelocytes % 7 H, Myelocytes % 4 H, Nucleated RBC % 1.2, Platelet Estimate SLT DEC, Polychromasia RARE, Hypochromasia 1+, Anisocytosis 1+, Microcytosis 3+, Absolute Retic 0.18 11/22/18 15:45: PT 16.7 H, INR 1.4, APTT 36.0 11/22/18 15:45: Sodium 130 L, Potassium 3.4 L, Chloride 93 L, Carbon Dioxide 25.0, Anion Gap 12, BUN 44 H, Creatinine 2.56 H, Estim Creat Clear Calc 23.06, Est GFR (MDRD) Af Amer 24 L, Est GFR (MDRD) Non-Af 20 L, BUN/Creatinine Ratio 17.2, Glucose 114 H, Calcium 8.7, Total Bilirubin 1.60 H, AST 177 H, ALT 36, Alkaline Phosphatase 983 H, Troponin I < 0.015, Total Protein 6.3 L, Albumin 2.0 L, Globulin 4.3 H, Albumin/Globulin Ratio 0.5 L 11/22/18 15:45: Blood Type A POSITIVE, Antibody Screen NEGATIVE 11/22/18 16:45: Urine Color Bridgett, Urine Clarity Cloudy, Urine pH 5.0, Ur Specific [place] 1.025, Urine Protein 30 H, Urine Glucose (UA) Normal, Urine Ketones 5 H, Urine Occult Blood 10 H, Urine Nitrite Negative, Urine Bilirubin 3 H, Urine Urobilinogen 8 H, Ur Leukocyte Esterase 25 H, Urine RBC 0 SEEN, Urine WBC 0-5 SEEN, Ur Squamous Epith Cells 0-5 SEEN, Amorphous Sediment 1+, Urine Bacteria 4+, Urine Mucus 0 SEEN 11/22/18 17:50: Miscellaneous Cytology Pending 11/22/18 20:20: Phosphorus 3.8, Magnesium 2.5, Troponin I < 0.015 11/22/18 23:05: Troponin I < 0.015 11/23/18 03:18: Sodium 134 L, Potassium 3.5, Chloride 98, Carbon Dioxide 26.0, Anion Gap 10, BUN 47 H, Creatinine 2.14 H, Estim Creat Clear Calc 23.88, Est GFR (MDRD) Af Amer 30 L, Est GFR (MDRD) Non-Af 24 L, BUN/Creatinine Ratio 22.0 H, Glucose 89, Calcium 8.4 L, Total Bilirubin 1.40 H, AST 166 H, ALT 34, Alkaline Phosphatase 869 H, Troponin I < 0.015, Total Protein 5.7 L, Albumin 1.8 L, Globulin 3.9, Albumin/Globulin Ratio 0.5 L 11/23/18 03:18: WBC 13.5 H, RBC 3.89 L, Hgb 8.8 L, Hct 27.7 L, MCV 71.2 L, MCH 22.6 L, MCHC 31.8 L, RDW 21.3 H, RDW Differential 52.7 H, Plt Count 93 L, MPV TNP, Neut % (Auto) Not Reportable, Absolute Neuts (auto) 10.7 H, Absolute Lymphs (auto) 0.41 L, Total Counted 100, Neutrophils % (Manual) 63, Band Neutrophils % 15 H, Lymphocytes % (Manual) 3 L, Monocytes % (Manual) 9, Metamyelocytes % 5 H, Myelocytes % 5 H, Diff Path Review May foll, Platelet Estimate MOD DEC, Hypochromasia RARE, Anisocytosis RARE, Microcytosis RARE Diagnostic Data Chest X-Ray 11/22/18 18:10 IMPRESSION: 1. Marketed reduction in the right pleural effusion. 2. No pneumothorax. 3. Left upper lung focal opacity, unknown etiology, refer to CT chest with contrast for definitive diagnosis. Differential diagnosis includes benign entities, such as pneumonia, loculated fluid, versus malignant, such as lung cancer. Electronically Signed: Sheron Pope, at 18:56 EDT Tel , Service support , Current Medications Acetaminophen (Tylenol) 650 mg PO Q6H PRN PRN PRN Reason: PAIN Diclofenac [facility]) [facility] Enoxaparin Sodium (Lovenox) 30 mg SC DAILY@1000 RONN Escitalopram Oxalate (Lexapro) 20 mg PO QHS [facility] Last Admin: 11/22/18 23:27 Dose: 20 mg Famotidine (Pepcid) 20 mg PO QHS PRN PRN PRN Reason: REFLUX Gabapentin (Neurontin) 800 mg PO BID [facility] Last Admin: 11/22/18 23:28 Dose: 800 mg Sodium Chloride () 1,000 mls @ 125 mls/hr IV .Q8H [facility] Last Admin: 11/23/18 05:22 Dose: 125 mls/hr Iron Sucrose 200 mg/ Sodium (Chloride) 110 mls @ 220 mls/hr IV DAILY [facility] Stop: 11/24/18 10:29 Last Admin: 11/23/18 08:35 Dose: 220 mls/hr Ondansetron HCl (Zofran) 4 mg IV Q8H PRN PRN PRN Reason: NAUSEA/VOMITING Oxycodone HCl (Oxyir) 5 mg PO Q4H PRN PRN PRN Reason: Moderate Pain (4-6/10) Last Admin: 11/23/18 01:17 Dose: 5 mg Sodium Chloride () 5 - 15 ml IV UD PRN PRN Reason: SALINE FLUSH Medical Necessity - Tobacco Use Smoking Status: Never smoker Tobacco Use: Non-smoker, Secondhand Assessment/Plan All Active Problems Depression (Acute) GERD (gastroesophageal reflux disease) (Acute) Endometrial cancer (Acute) Pleural effusion (Acute) 1. Metastatic endometrial cancer s/p endometrial resection has lung and liver metastases admitted after she had right sided thoracentesis for pleural effusion, with drainage of 1L of serosanguinous fluid has had radiation of the liver and is a candidate for immunotherapy still on 2L of oxygen. cytology for pleural fluid pending discussed with Dr Engel; to get palliative care on board now, due to patient's very frail and debilitated state 2. Acute hypoxic respiratory insufficiency due to lung metastases from endometrial cancer is s/p right thoracentesis for right sided pleural effusion, likely malignant as under as under 1. titrate oxygen to maintain sats >90% give breathing treatments 3. JAM: Cr was 2.56 on admission. Now down to 2.14. May be due to dehydration and hypotension; she had transient hypotension after the thoracentesis. continue hydration with IVF. 4. Transaminases: due to liver mets from endometrial cancer. Total bilirubin was 1.6 on admission and is now down to 1.4. AST down to 166 from 177; ALP down to 983 from 869. will monitor 5. UTI: Had leukocytosis of 15 on admission but is down to 13.5 today. Has bands of over 10%. UA showed 4+ bacteria 25 leukocyte esterase. Urine culture pending In light of patient's immunosuppression, she may not be able to mount a febrile response to infection. she was tachycardic on admission, and therefore had SIRS 2/4 criteria on admission, with possible source of infection in the urine Will therefore go ahead and start treating empirically with IV ceftriaxone. 6. Anemia due to blood loss and iron deficiency has been having episodic vaginal bleeding from vaginal metastases Hb today is 8.8; was 9.8 yesterday will monitor, and transfuse if Hb<7 to get IV Venofer x 3 doses 7. THrombocytopenia: platelets were 119 on admission, now down to 93. Likely due to cancer. Continue lovenox; consider stopping if bleeding worsens or platelets fall to <50 8.GERD: on Pepcid DVT prophylaxis: lovenox Code status: DNRCCA CODE STATUS and prognosis discussed at length with patient by hospitalist today. Patient stated that she knew her cancer was terminal but said she thought the immunotherapy that had been suggested by oncology was going to be curative for the cancer. Patient was counseled that she had extensively metastatic cancer and the chances of cure by the immunotherapy was reduced. Patient has a daughter and . She states her daughter is somewhat aware of how sick she is but her is not as she has decided not to inform him of the full details. Patient states she does not realize how sick she has that she could not even feed herself today and feels very weak and debilitated. Patient was agreeable to being evaluated by hospice and palliative care today. Patient stated she did not want any heroic life-saving measures and just wanted to be made comfortable. Patient was agreeable to the CODE STATUS of DNR CCA after discussion. Hospice and palliative care consult placed. Total [id number] time 20 minutes Code Visit Inpatient E&M: 51070 Subs Hosp L3 Procedures: 37314 Advncd Care Plan 30 Min
--- NOTE | 2018-11-23 09:47 | PN_ITS ---
Patient Problems: Active and Suspected Problems Depression (Acute) GERD (gastroesophageal reflux disease) (Acute) Endometrial cancer (Acute) Pleural effusion (Acute) Subjective: Patient seen and examined. She was admitted with a complaint of shortness of breath. She just had right-sided thoracentesis for right pleural effusion due to metastatic endometrial cancer with drainage of 1 L of serosanguinous fluid. Subsequently started feeling short of breath and so was admitted. Patient seen and examined this morning. She is very lethargic. She had no active complaints. She denied any fever or chills and says shortness of breath that improved. She denied any chest pain or palpitations, dizziness, diarrhea or vomiting. 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 Labs and vitals reviewed. Vitals/I&O's: Vital Signs Temp Pulse Resp BP Pulse Ox 97.8 F 97 16 114/68 94 11/23/18 03:37 11/23/18 07:14 11/23/18 03:37 11/23/18 03:37 11/23/18 03:37 Oxygen Flow Rate (L/min) 3 Oxygen Delivery Method Nasal Cannula Weight: 196 lb 6.91 oz Body Mass Index (BMI) 31.6 Intake and Output for Last 24 Hours 11/21/18 11/22/18 11/23/18 23:59 23:59 23:59 Intake Total 950 / 950 910 / 910 Output Total 0 / 0 0 / 0 Balance 950 / 950 910 / 910 General: Alert, Cooperative, Lethargic HEENT: Atraumatic, PERRLA, EOMI, Normocephalic, - - jaundiced sclera Oral: Dry Mucosa Neck: Supple, No JVD, Negative Carotid Bruits Lungs: - - decreased breath sounds bibasally, no wheezes. Few crackles bibasally. On 2L of oxygen. Cardiovascular: Regular rate, Regular Rhythm, Normal S1, Normal S2, No murmurs Abdomen: Bowel Sounds Present, Soft, Non Tender, Non-Distended, No Hepato- splenomegaly Extremities: No cyanosis, No edema, Capillary Refill Less than 3 Seconds Skin: No rashes, No breakdown Musculoskeletal: No Tenderness to Palpation of Joints or Extremities Lymphatic: No Cervical, Supraclavicular, or Inguinal Adenopathy Neurological: Cranial nerves II-XII grossly intact, Neuro grossly intact, Motor Exam 5/5 strength throughout Psych/Mental Status: - - very weak and lethargic Laboratory Results 11/22/18 15:45: WBC 15.0 H, RBC 4.29, Hgb 9.8 L, Hct 30.8 L, MCV 71.8 L, MCH 22.8 L, MCHC 31.8 L, RDW 21.2 H, RDW Differential 53.1 H, Plt Count 119 L, MPV 9 .1, Neut % (Auto) Not Reportable, Absolute Neuts (auto) 11.6 H, Absolute Lymphs (auto) 0.90, Total Counted 100, Neutrophils % (Manual) 47, Band Neutrophils % 19 H, Lymphocytes % (Manual) 6 L, Monocytes % (Manual) 17 H, Metamyelocytes % 7 H, Myelocytes % 4 H, Nucleated RBC % 1.2, Platelet Estimate SLT DEC, Polychromasia RARE, Hypochromasia 1+, Anisocytosis 1+, Microcytosis 3+, Absolute Retic 0.18 11/22/18 15:45: PT 16.7 H, INR 1.4, APTT 36.0 11/22/18 15:45: Sodium 130 L, Potassium 3.4 L, Chloride 93 L, Carbon Dioxide 25.0, Anion Gap 12, BUN 44 H, Creatinine 2.56 H, Estim Creat Clear Calc 23.06, Est GFR (MDRD) Af Amer 24 L, Est GFR (MDRD) Non-Af 20 L, BUN/Creatinine Ratio 17.2, Glucose 114 H, Calcium 8.7, Total Bilirubin 1.60 H, AST 177 H, ALT 36, Alkaline Phosphatase 983 H, Troponin I < 0.015, Total Protein 6.3 L, Albumin 2.0 L, Globulin 4.3 H, Albumin/Globulin Ratio 0.5 L 11/22/18 15:45: Blood Type A POSITIVE, Antibody Screen NEGATIVE 11/22/18 16:45: Urine Color Bridgett, Urine Clarity Cloudy, Urine pH 5.0, Ur Sp ecific [place] 1.025, Urine Protein 30 H, Urine Glucose (UA) Normal, Urine Ketones 5 H, Urine Occult Blood 10 H, Urine Nitrite Negative, Urine Bilirubin 3 H, Urine Urobilinogen 8 H, Ur Leukocyte Esterase 25 H, Urine RBC 0 SEEN, Urine WBC 0-5 SEEN, Ur Squamous Epith Cells 0-5 SEEN, Amorphous Sediment 1+, Urine Bacteria 4+, Urine Mucus 0 SEEN 11/22/18 17:50: Miscellaneous Cytology Pending 11/22/18 20:20: Phosphorus 3.8, Magnesium 2.5, Troponin I < 0.015 11/22/18 23:05: Troponin I < 0.015 11/23/18 03:18: Sodium 134 L, Potassium 3.5, Chloride 98, Carbon Dioxide 26.0, Anion Gap 10, BUN 47 H, Creatinine 2.14 H, Estim Creat Clear Calc 23.88, Est GFR (MDRD) Af Amer 30 L, Est GFR (MDRD) Non-Af 24 L, BUN/Creatinine Ratio 22.0 H, Glucose 89, Calcium 8.4 L, Total Bilirubin 1.40 H, AST 166 H, ALT 34, Alkaline Phosphatase 869 H, Troponin I < 0.015, Total Protein 5.7 L, Albumin 1.8 L, Globulin 3.9, Albumin/Globulin Ratio 0.5 L 11/23/18 03:18: WBC 13.5 H, RBC 3.89 L, Hgb 8.8 L, Hct 27.7 L, MCV 71.2 L, MCH 22.6 L, MCHC 31.8 L, RDW 21.3 H, RDW Differential 52.7 H, Plt Count 93 L, MPV TNP, Neut % (Auto) Not Reportable, Absolute Neuts (auto) 10.7 H, Absolute Lymphs (auto) 0.41 L, Total Counted 100, Neutrophils % (Manual) 63, Band Neutrophils % 15 H, Lymphocytes % (Manual) 3 L, Monocytes % (Manual) 9, Metamyelocytes % 5 H, Myelocytes % 5 H, Diff Path Review May foll, Platelet Estimate MOD DEC, Hypochromasia RARE, Anisocytosis RARE, Microcytosis RARE Diagnostic Data Chest X-Ray 11/22/18 18:10 IMPRESSION: 1. Marketed reduction in the right pleural effusion. 2. No pneumothorax. 3. Left upper lung focal opacity, unknown etiology, refer to CT chest with contrast for definitive diagnosis. Differential diagnosis includes benign entities, such as pneumonia, loculated fluid, versus malignant, such as lung cancer. Electronically Signed: Sheron Pope, at 18:56 EDT Tel , Service support , Current Medications Acetaminophen (Tylenol) 650 mg PO Q6H PRN PRN PRN Reason: PAIN Diclofenac [facility]) [facility] Enoxaparin Sodium (Lovenox) 30 mg SC DAILY@1000 RONN Escitalopram Oxalate (Lexapro) 20 mg PO QHS [facility] Last Admin: 11/22/18 23:27 Dose: 20 mg Famotidine (Pepcid) 20 mg PO QHS PRN PRN PRN Reason: REFLUX Gabapentin (Neurontin) 800 mg PO BID [facility] Last Admin: 11/22/18 23:28 Dose: 800 mg Sodium Chloride () 1,000 mls @ 125 mls/hr IV .Q8H [facility] Last Admin: 11/23/18 05:22 Dose: 125 mls/hr Iron Sucrose 200 mg/ Sodium (Chloride) 110 mls @ 220 mls/hr IV DAILY [facility] Stop: 11/24/18 10:29 Last Admin: 11/23/18 08:35 Dose: 220 mls/hr Ondansetron HCl (Zofran) 4 mg IV Q8H PRN PRN PRN Reason: NAUSEA/VOMITING Oxycodone HCl (Oxyir) 5 mg PO Q4H PRN PRN PRN Reason: Moderate Pain (4-6/10) Last Admin: 11/23/18 01:17 Dose: 5 mg Sodium Chloride () 5 - 15 ml IV UD PRN PRN Reason: SALINE FLUSH Medical Necessity - Tobacco Use Smoking Status: Never smoker Tobacco Use: Non-smoker, Secondhand Assessment/Plan All Active Problems Depression (Acute) GERD (gastroesophageal reflux disease) (Acute) Endometrial cancer (Acute) Pleural effusion (Acute) 1. Metastatic endometrial cancer s/p endometrial resection * has lung and liver metastases * admitted after she had right sided thoracentesis for pleural effusion, with drainage of 1L of serosanguinous fluid * has had radiation of the liver and is a candidate for immunotherapy * still on 2L of oxygen. * cytology for pleural fluid pending * discussed with Dr Engle; to get palliative care on board now, due to patient's very frail and debilitated state * 2. Acute hypoxic respiratory insufficiency due to lung metastases from endometrial cancer * is s/p right thoracentesis for right sided pleural effusion, likely malignant * as under * as under 1. * titrate oxygen to maintain sats >90% * give breathing treatments * 3. JAM: * Cr was 2.56 on admission. Now down to 2.14. * May be due to dehydration and hypotension; she had transient hypotension after the thoracentesis. * continue hydration with IVF. * 4. Transaminases: * due to liver mets from endometrial cancer. * Total bilirubin was 1.6 on admission and is now down to 1.4. * AST down to 166 from 177; ALP down to 983 from 869. * will monitor * 5. UTI: * Had leukocytosis of 15 on admission but is down to 13.5 today. Has bands of over 10%. * UA showed 4+ bacteria 25 leukocyte esterase. Urine culture pending * In light of patient's immunosuppression, she may not be able to mount a febri le response to infection. * she was tachycardic on admission, and therefore had SIRS 2/4 criteria on admission, with possible source of infection in the urine * Will therefore go ahead and start treating empirically with IV ceftriaxone. * 6. Anemia due to blood loss and iron deficiency * has been having episodic vaginal bleeding from vaginal metastases * Hb today is 8.8; was 9.8 yesterday * will monitor, and transfuse if Hb<7 * to get IV Venofer x 3 doses 7. THrombocytopenia: * platelets were 119 on admission, now down to 93. Likely due to cancer. * Continue lovenox; consider stopping if bleeding worsens or platelets fall to <50 8.GERD: on Pepcid DVT prophylaxis: lovenox * * Code status: DNRCCA * CODE STATUS and prognosis discussed at length with patient by hospitalist today. Patient stated that she knew her cancer was terminal but said she thought the immunotherapy that had been suggested by oncology was going to be curative for the cancer. Patient was counseled that she had extensively metastatic cancer and the chances of cure by the immunotherapy was reduced. Patient has a daughter and . She states her daughter is somewhat aware of how sick she is but her is not as she has decided not to inform him of the full details. Patient states she does not realize how sick she has that she could not even feed herself today and feels very weak and debilitated. Patient was agreeable to being evaluated by hospice and palliative care today. Patient stated she did not want any heroic life-saving measures and just wanted to be made comfortable. Patient was agreeable to the CODE STATUS of DNR CCA after discussion. Hospice and palliative care consult placed. * Total [id number] time 20 minutes Code Visit Inpatient E&M: 47617 Subs Hosp L3 Procedures: 75398 Advncd Care Plan 30 Min
[2018-11-23] MEDS: Acetaminophen 325 MG Tablet 650 MG PO (09:49)
[2018-11-23] MEDS: Diclofenac 75 MG Tablet PO ×2 (09:51→16:34)
[2018-11-23] MEDS: Gabapentin 800 MG Tablet PO ×2 (09:52→21:43)
[2018-11-23] MEDS: Enoxaparin 30 MG/0.3 ML Syringe SC (09:52)
--- NOTE | 2018-11-23 11:10 | CASEMGMT ---
This RN CM to room to complete CM assessment and SENIOR JAVA SOFTWARE ENGINEER is feeding pt at this time, will attempt again later. SStaten RN CM
[2018-11-23] MEDS: Ceftriaxone 1 GM/50 ML BAG IV ×2 (11:36→21:41)
--- NOTE | 2018-11-23 13:52 | NURSING ---
This RN taking over care at this time
[2018-11-23 14:04] LABS: Pathologist Review Reviewed
--- NOTE | 2018-11-23 14:04 | CASEMGMT ---
PASHA MASSEY assessment: Face to Face with patient for initial transition planning/care coordination assessment. RN SHILPA introduced self and role at [facility], pt voices understanding and consents to assessment at this time. Pt is sitting up in bed in no distress at this time. Pt is pale and slow to answer questions at this time. Pt somewhat confused at times but answers most questions appropriately and there are no family members at bedside at this time. Care providers, pharmacy, and demographics verified at this time. PCP: Wendy Specialists: Janeti, onc Preferred Pharmacy: Pt unable to answer at this time. CM to f/u with family or pt later in regards to same. Insurance: MCR A/B, MMO Prescription Benefit: Yes Living Will/HPOA: Pt has LW/HPOA and they are currently on file at [facility] at this time. Pt's daughter, Cindy Verma, is HPOA. LNOK: Jovanni Verma, ; Cindy Verma, daughter Living Arrangements: Pt states lives with and daughter on main level of 2 story home and states that family helps care for her at this time. Transportation: Pt states family drives and states no transportation concerns at this time. DME/HHC: Pt states has a walker and shower chair at home at this time. Pt states no need for any further DME at this time. Pt states no hx of HHC or SNF in the past. Dr. Sotelo wanted palliative referral for pt at this time and pt is agreeable. Pt states she would like to discuss treatment options before considering hospice. Pt does state some concerns with going home at time of discharge. Pt is retired. Pt states does not smoke or drink ETOH. Pt states no further questions/concerns/needs at this time. CM to follow for any further discharge planning/needs. Advised pt to ask for CM if any further questions/concerns/needs arise, voices understanding. This RN CM to try and f/u with pt/family at later date in regards to discharge planning/pharmacy. Pt Goal: Home w/ family Plan: TBD SStaten PASHA MASSEY
[2018-11-23 14:06] LABS: Pathologist Review Reviewed
--- NOTE | 2018-11-23 15:08 | CASEMGMT ---
SW met with patient as she agreed to a Palliative/Hospice referral. SW explained to patient how the process works. She said Palliative Care should call her daughter to arrange appointment. SW called patient's daughter Cindy and explained situation to her. She told SW patient is active with Palliative Care through someone in [place]. She gave SW a phone number to call. ([phone]) SW called this number and it was [facility] Nurse [facility] through [facility]. She gave SW the phone number to call for [facility] Palliative Care. ([phone]) SW called this number and the message said [facility]. SW spoke with someone and she said she would get the message to the Palliative Care team and someone will call SW back when able. SW will wait to hear from them before calling the local Palliative/Hospice team. Jennifer RAMIREZ MSW
--- NOTE | 2018-11-23 15:30 | CASEMGMT ---
SW received a return call from Kylie Lew at [facility] Palliative [facility]. She said based on her conversation with the Visiting Nurse that is seeing patient at home they feel patient is more appropriate for Hospice. She said [facility] has Hospice, but if there is a local Hospice that has an inpatient unit this may be more appropriate. SW thanked her for her return call and information. Per RN CM patient said she wants to know what options for treatment are available before she goes Hospice. KAT will talk with physician and patient in am to make sure everyone is on the same page before Hospice talks with patient. Jennifer RAMIREZ MSW
--- NOTE | 2018-11-23 16:34 | CHAPLAIN ---
Type of Pastoral Visit _x__ Initial Visit ___ Follow-up Visit ___ On-call Visit ___ General Patient Visit ___ Spiritual Assessment ___ Family Conference ___ Bereavement ___ Rapid Response ___ Code Blue ___ Other (describe below) Pastoral Care Referral From _x__ Patient ___ Family ___ Nurse ___ Physician ___ Vocal Teacher ___ Fingerprint Clerk ___ Other (describe below) Sacrament/Intervention _x__ Active listening ___ Anointing ___ Samaritan ___ Bereavement ___ Communion _x__ Shyanne exploration ___ ___ Life review _x__ Prayer ___ Reconciliation ___ Sacrament of Sick _x__ Supportive presence ___ Wedding ___ Other (describe below) Pastoral Comments patient expresses desires for a good ; pt says she is ready to and has been making preparations in practical and spiritual matters; pt welcomes spiritual support and received scripture readings for comfort and prayer
[2018-11-23] MEDS: Escitalopram Oxalate 20 MG Tablet PO (21:42)
[2018-11-24] VITALS (13 sets, daily range): BP systolic 111–132; BP diastolic 50–69; PULSE 99–109; RESP 16–20; TEMP 36.4–36.6; O2SAT 92–93
[2018-11-24] MEDS: 0.9% Normal Saline 1,000 ML 125 ML IV (05:40)
[2018-11-24 05:46] LABS: Anion Gap 10 (5-15); BUN 50 mg/dL (7-18); BUN/Creat Ratio 21.7 RATIO (10-20); Calcium,Total 8.7 mg/dL (8.5-10.1); Chloride 100 mmol/L (98-107); EST Glomerular Filtration Rate 22 mL/min (>60); Est Glom Filt Rate - Afr Amer 27 mL/min (>60); Estimated Creatinine Clearance 22.22 ml/min; Glucose 82 mg/dL (74-106); Potassium 4.3 mmol/L (3.5-5.1); Sodium Level 134 mmol/L (136-145)
[2018-11-24 06:38] LABS: Absolute Lymphocyte Count 1.22 X10^3/ul (0.83-4.51); Absolute Neutrophil Count 9.7 X10^3/uL (2.0-7.7); Basophil# 0.25 X10^3/uL; Basophil% 1.7 % (0-1); Eosinophil# 0.16 X10^3/uL; Eosinophils% 1.1 % (0-5); Hematocrit 27.7 % (37-47); Hemoglobin 8.6 g/dl (12.0-15.0); Lymphocyte # 1.22 X10^3/ul (4.0); Lymphocyte % 8.5 % (19-41); Mean Corpuscular Hgb 22.8 pg (27.0-32.0); Mean Corpuscular Volume 73.3 fL (81-99); Monocyte# 1.24 X10^3/uL; Monocyte% 8.7 % (0-10); Neutrophil # 9.71 X10^3/uL (2.7-7.7); Platelet Count 63 K/mm3 (150-450); RBC Distribution Width CV 21.6 % (11.6-14.6); RBC Distribution Width SD 55.5 fl (35.1-43.9); Red Blood Count 3.78 M/mm3 (4.2-5.4); White Blood Count 14.3 K/mm3 (4.4-11.0)
[2018-11-24 06:39] LABS: Differential Indicated SCAN CRITERIA MET; POSITIVE COUNT YES; POSITIVE DIFFERENTIAL NO; POSITIVE MORPHOLOGY YES
[2018-11-24 07:00] LABS: Differential Comment SCAN
[2018-11-24 07:01] LABS: Anisocytosis 1+; Hypochromasia 1+; Microcytosis 1+; Platelet Estimate MOD DEC (ADEQ); Platelet Morphology LARGE; Polychromasia 1+
[2018-11-24] MEDS: Diclofenac 75 MG Tablet PO (08:21)
[2018-11-24] MEDS: Gabapentin 800 MG Tablet PO (08:28)
[2018-11-24] MEDS: Ceftriaxone 1 GM/50 ML BAG IV (09:24)
--- NOTE | 2018-11-24 09:59 | CASEMGMT ---
This RN CM spoke with pt's daughter and pharmacy updated at this time. Daughter is waiting to speak with Dr. Sotelo. CM to follow. David PAK CM
--- NOTE | 2018-11-24 11:11 | CASEMGMT ---
Patient has a Healthcare POA and Healthcare LW on file at [facility]. Jennifer RAMIREZ TECHNOLOGY INSTRUCTOR
[2018-11-24] MEDS: oxyCODONE 5 MG Tablet PO (11:40)
--- NOTE | 2018-11-24 13:16 | CASEMGMT ---
Dr Engel spoke with patient and family. They decided to go with Hospice. KAT spoke with family and they would like patient to be evaluated for the inpatient unit. SW called Hospice and they will send a nurse to evaluate for unit. Physician and RN aware of above. Jennifer RAMIREZ APPLIED ANTHROPOLOGIST
--- NOTE | 2018-11-24 13:26 | CASEMGMT ---
Addendum entered by Jennifer Cha 11/24/18 15:11: Patient was evaluated by equipment operation instructor and was approved for the inpatient unit. Hospice to arrange transportation. Plan: d/c to [facility] In patient Unit. Jennifer VALDERRAMA Original Note: SW notified [facility] Palliative Care and Visiting Nurse Service know about patient going Hospice. Jennifer VALDERRAMA
--- NOTE | 2018-11-24 13:52 | CON.PCM_ITS ---
- Problem List (1) Endometrial cancer Status: Acute Consult Referring Physician: Deepak Chaney Chief Complaint: Endometrial cancer History of Present Illness: Diagnosis: 1) Endometrial cancer. ? HPI:?The patient is a 65 yo female who had an unremarkable PMH. ? SURGERY & DATE:?06/14/2015 - Robotic total hysterectomy >250 gram, bilateral salpingo-oophorectomy, pelvic and para-aortic lymphadenectomy and cystoscopy ? PATHOLOGY:? FINAL DIAGNOSIS: 1. Uterus, cervix, endometrial tumor, bilateral ovaries and fallopian tubes, hysterectomy and bilateral salpingo-oophorectomy (A-B) - Endometrioid adenocarcinoma of the endometrium, FIGO grade 2, with squamous differentiation. - Tumor invades 10 mm of the 15 mm myometrial thickness (67%). - Lymphovascular invasion is identified. - Background endometrial polyp. - Myometrium with leiomyomas. - Unremarkable uterine serosa, negative for carcinoma. - Cervix with chronic inflammation, negative for carcinoma. - Unremarkable ovaries and fallopian tubes, negative for carcinoma. 2. Fibroid, resection (C) - Benign extensively hyalinized and calcified nodule, consistent with leiomyoma. 3. Lymph nodes, right pelvic, excision (D) - Eleven lymph nodes, negative for carcinoma (0/11). 4. Lymph nodes, left pelvic, excision (E) - Eleven lymph nodes, negative for carcinoma (0/11). 5. Lymph nodes, right paraaortic, excision (F) - Four lymph nodes, negative for carcinoma (0/4). 6. Lymph nodes, left paraaortic, excision (G) - Eight lymph nodes, negative for carcinoma (0/8). COMMENT: An immunohistochemical stain was performed on block B2 to further characterize the tumor. The tumor cells are negative for Napsin, supporting the above diagnosis. Slides from this case were reviewed with Dr. Yvon Clements, who concurs. ? PRIOR TREATMENT & DATE: 1) 05/30/2015: EMB - Benign endocervical epithelium and endometrial stroma. ? Previous?therapy: 1) Adjuvant carboplatin/Taxol. Competed 6 cycles 2015. ? She was lost to follow-up. Recently underwent evaluation for vaginal bleeding. Found to have metastatic disease involving the vaginal cuff and extensive liver metastases. CT A/P 09/15/2018: IMPRESSION: 1. ?Development of multiple liver masses suspicious for metastatic disease. ?This includes a very large mass which occupies the majority of the right lobe. 2. ?Development of an oblong mass at the right lung base which is suspicious for neoplasm. ?Recommend full chest CT to evaluate for other lesions. 3. ?Development of lobulated mural thickening and enhancement of the vagina including a 3.4 cm mass at the left upper vagina. ?This could represent a site of recurrence of the endometrial malignancy. 4. ?Relatively stable fluid collection against the left pelvic sidewall compatible with a lymphocele. 5. ?Sigmoid colonic diverticulosis without diverticulitis. Completed a course of palliative radiation to the liver and vagina 11/03/2018. she had noticed considerable decrease in vaginal bleeding since completing radiation. She was living at home with her . She was capable of her ADLs. She fell about 3 weeks ago and hit the side of her head on the right. She'd been having chronic headache since. She was evaluated in the ER. CT scan showed mild cerebral atrophy with widening of the extra-axial spaces and ventricular dilation. There was a 9 mm rounded hypodensity in the deep left parietal lobe suggestive of old lacunar infarct. There was also evidence of an old infarct in the insular cortex of the left temporal lobe. No intracranial hemorrhage or findings of acute ischemic infarction were observed. Soft tissue structures were noted to be normal. Was under palliative care through [facility]. Presented to the emergency department here with complaints of increasing weakness, shortness of breath and fatigue. CBC demonstrated microcytic anemia. Chest x-ray showed large right pleural effusion. She underwent thoracentesis in the emergency department. 1000 cc of serosanguineous fluid were removed. Chemistry significant for acute kidney injury as well as elevated bilirubin and alkaline phosphatase in hepatocellular enzymes. Has been admitted and placed on empiric glottic therapy for possible UTI. She's been receiving iron infusion. She remains weak and lethargic. Having abdominal pain and continued head pain. Past Medical/Surgical History: Past Medical History - Most Recent Inpatient Visit Past Medical History Start: 11/22/18 19:59 Text: Status: Complete Freq: ONCE Protocol: Document 11/22/18 20:08 CECI (Rec: 11/22/18 20:10 [facility] [id number]) BMI Required to complete PMH What is Patient's BMI 31.7 Past Medical History Unable History Recalled No Query Text:Pt Unable/Family Not Present Neurologic Medical History Hx Stroke/TIA No Hx Dementia/Alzheimer's No Hx Parkinson's Disease No Hx Seizures No Hx Multiple Sclerosis No Hx Migraines No Cardiac Medical History VTE Present on Admission No Hx of Deep Vein Thrombosis/VTE/PE No Hx Hypertension No Hx Chest Pain/Angina Yes Hx Heart Attack No Hx Cardiac Surgery/Stents/Etc. No Hx Heart Failure No Hx Pacemaker/AICD No Hx Irregular Heartbeat and/or Afib No Hx Anticoagulant Therapy No Query Text:(Coumadin, Aspirin, Plavix, Xarelto, etc.) Hx Pain in Legs when Walking/Leg Cramps No Respiratory Medical History Hx COPD No Hx Emphysema No Hx Smoking No Smoking Status Never smoker Tobacco Use Non-smoker Secondhand Hx Smoking Exposure Yes Hx Tobacco Use in last 12 months No Hx of Pipe Smoking No Hx of Cigar Smoking No Hx Sleep Apnea No Do you snore loudly (louder than talking No or can be heard through closed doors)? Do you often feel tired/ fatigued/ Yes sleepy during daytime? Has anyone observed you stop breathing No during sleep? STOP Results Negative GI Medical History Hx Ulcer No Hx Hepatitis No Hx Cirrhosis No Hx GI Bleed No Hx Unplanned Weight Loss No Genitourinary Medical History Indwelling Catheter in Place on Arrival/ No Admission Hx Renal Disease No Hx Dialysis No Musculoskeletal History Hx Arthritis Yes Hx Rheumatoid Arthritis No Endocrine Medical History Hx Diabetes No Hx Thyroid Disease No Hematologic Medical History Hx of Blood Transfusion No Hx of Transfusion in last 3 Months No Ever experience any problems with No transfusion(s)? Hx of Preganancy in last 3 Months No Nurse Filling Out Transfusion & JLAMP Questions: Date: 11/22/18 Time: 20:10 Psycho/Social Medical History Hx Depression Yes Hx Anxiety No Hx Behavior Disorder No Hx Alcohol Use No Hx Substance Use No Other Medical History Hx Blood Disorders No Hx Anemia No Hx Cancer Yes Hx Drug Resistant Organism No Wound/Pressure Injury Present on Arrival No /Admission Query Text:If yes, chart assessment in Shift/Clinical Findings Central Line/PICC/VAD Present on Arrival No /Admission Antibiotics within last 7 days? No Risk for Readmission Number of Risk Factors 3 At Risk for Readmission Patient is At Risk For Readmission Patient is eligible for Call Back Y Maternal Family History: No pertinent history Paternal Family History: No pertinent history - Social History Smoking Status: Never smoker Tobacco Use: Non-smoker, Secondhand Alcohol: None Drugs: None Allergies/Adverse Reactions: Allergy/AdvReac Type Severity Reaction Status Date / Time No Known Allergies Allergy Verified 11/22/18 15:06 Vital Signs Height 1.68 m Weight: 89.1 kg Weight in Pounds 196.4 lbs Pulse Ox 92 Temperature 97.6 F Pulse Rate 104 Respiratory Rate 20 Blood Pressure 127/62 Blood Pressure Position Semi-Fowlers Laboratory Data: Microbiology 11/22/18 16:45 Urine Culture - Preliminary Urine, Clean Catch Culture exhibits no growth. Laboratory Tests 11/24/18 11/24/18 11/23/18 Range/Units 05:20 05:20 03:18 WBC 14.3 H (4.4-11.0) K/mm3 RBC 3.78 L (4.2-5.4) M/mm3 Hgb 8.6 L (12.0-15.0) g/dl Hct 27.7 L (37-47) % MCV 73.3 L (81-99) fL MCH 22.8 L (27.0-32.0) pg MCHC 31.0 L (32-36) g/gl RDW 21.6 H (11.6-14.6) % RDW Differential 55.5 H (35.1-43.9) fl Plt Count 63 L (150-450) K/mm3 Immature Gran % (Auto) 12.000 H (0.0-0.9) % Neut % (Auto) 68.0 (47-70) % Lymph % (Auto) 8.5 L (19-41) % [place] % (Auto) 8.7 (0-10) % Eos % (Auto) 1.1 (0-5) % Baso % (Auto) 1.7 H (0-1) % Absolute Neuts (auto) 9.7 H (2.0-7.7) X10^3/uL Absolute Lymphs (auto) 1.22 (0.83-4.51) X10^3/ul Total Counted Not Reportable Differential Comment SCAN Diff Path Review Reviewed Platelet Estimate MOD DEC (ADEQ) Plt Morphology Comment LARGE Polychromasia 1+ Hypochromasia 1+ Anisocytosis 1+ Microcytosis 1+ Sodium 134 L (136-145) mmol/L Potassium 4.3 (3.5-5.1) mmol/L Chloride 100 (98-107) mmol/L Carbon Dioxide 24.0 (21.0-32.0) mmol/L Anion Gap 10 (5-15) BUN 50 H (7-18) mg/dL Creatinine 2.30 H (0.55-1.02) mg/dL Estim Creat Clear Calc 22.22 ml/min Est GFR (MDRD) Af Amer 27 L (>60) mL/min Est GFR (MDRD) Non-Af 22 L (>60) mL/min BUN/Creatinine Ratio 21.7 H (10-20) RATIO Glucose 82 (74-106) mg/dL Calcium 8.7 (8.5-10.1) mg/dL 11/22/18 Range/Units 15:45 WBC (4.4-11.0) K/mm3 RBC (4.2-5.4) M/mm3 Hgb (12.0-15.0) g/dl Hct (37-47) % MCV (81-99) fL MCH (27.0-32.0) pg MCHC (32-36) g/gl RDW (11.6-14.6) % RDW Differential (35.1-43.9) fl Plt Count (150-450) K/mm3 Immature Gran % (Auto) (0.0-0.9) % Neut % (Auto) (47-70) % Lymph % (Auto) (19-41) % [place] % (Auto) (0-10) % Eos % (Auto) (0-5) % Baso % (Auto) (0-1) % Absolute Neuts (auto) (2.0-7.7) X10^3/uL Absolute Lymphs (auto) (0.83-4.51) X10^3/ul Total Counted Differential Comment Diff Path Review Reviewed Platelet Estimate (ADEQ) Plt Morphology Comment Polychromasia Hypochromasia Anisocytosis Microcytosis Sodium (136-145) mmol/L Potassium (3.5-5.1) mmol/L Chloride (98-107) mmol/L Carbon Dioxide (21.0-32.0) mmol/L Anion Gap (5-15) BUN (7-18) mg/dL Creatinine (0.55-1.02) mg/dL Estim Creat Clear Calc ml/min Est GFR (MDRD) Af Amer (>60) mL/min Est GFR (MDRD) Non-Af (>60) mL/min BUN/Creatinine Ratio (10-20) RATIO Glucose (74-106) mg/dL Calcium (8.5-10.1) mg/dL Diagnostic Data: Diagnostic Data Chest X-Ray 11/22/18 18:10 IMPRESSION: 1. Marketed reduction in the right pleural effusion. 2. No pneumothorax. 3. Left upper lung focal opacity, unknown etiology, refer to CT chest with contrast for definitive diagnosis. Differential diagnosis includes benign entities, such as pneumonia, loculated fluid, versus malignant, such as lung cancer. Electronically Signed: Sheron Pope, at 18:56 EDT Tel , Service support , Assessment and Plan 1) Metastatic recurrence of endometrial cancer with liver, abdominal and lung metastases. Assessment: -KPS is 20-30%. -In summary the patient is a 68-year-old female with a recent history of metastatic recurrence of endometrial cancer causing extensive hepatic metastatic disease. There are also metastases to the abdomen as well as the right lung. Right lung metastasis causing significant pleural effusion. The burden of metastatic disease has severely compromised her performance status. -I reviewed the overall clinical situation with the patient and her family. Because of her severely compromised performance status as well as hepatic and renal dysfunction, further systemic chemotherapy/immunotherapy as there is great risk of harm. -I therefore recommended hospice care. The patient and her family are in agreement. Plan: -Referral to hospice care. Anticipate inpatient hospice transfer. Medications: Prescriptions This Visit Medication Instructions Recorded Diclofenac [Voltaren] 75 mg PO BID 11/22/18 Escitalopram Oxalate [Lexapro] 20 mg PO QHS 11/22/18 Famotidine [Pepcid] 20 mg PO QHS PRN 11/22/18 Gabapentin [Neurontin] 800 mg PO BID 11/22/18 Multivitamin [Multivitamins] 1 each PO DAILY 11/22/18 Oxycodone HCl/Acetaminophen 1 each PO Q8H PRN 11/22/18 [Percocet 5-325 mg Tablet] Oxycodone [Oxyir] 5 mg PO Q8H PRN PRN 11/22/18 Prochlorperazine Maleate 10 mg PO Q6H PRN 11/22/18 [Compazine] Senna/Docusate Sodium [Senokot-S, 2 tablet PO QHS PRN PRN 11/22/18 Denisse-Colace] Primary Care Provider: Nemesio Nguyen MD Referring Provider: Dave Hogan MD
--- NOTE | 2018-11-24 14:40 | PCM.DC.SUM ---
Discharge Date and Diagnosis - Problem List Patient Problems: Active and Suspected Problems Depression (Acute) GERD (gastroesophageal reflux disease) (Acute) Endometrial cancer (Acute) Pleural effusion (Acute) Date of Admission: 11/22/18 Date of Discharge: 11/24/18 - Primary Discharge Diagnosis Active and Suspected Problems Depression (Acute) GERD (gastroesophageal reflux disease) (Acute) Metastatic Endometrial cancer (Acute) Pleural effusion (Acute) acute hypoxic respiratory insufficiency JAM UTI anemia due to acute blood loss and iron deficiency Hospital Course and Treatment Imaging Results: Diagnostic Data Chest X-Ray 11/22/18 18:10 IMPRESSION: 1. Marketed reduction in the right pleural effusion. 2. No pneumothorax. 3. Left upper lung focal opacity, unknown etiology, refer to CT chest with contrast for definitive diagnosis. Differential diagnosis includes benign entities, such as pneumonia, loculated fluid, versus malignant, such as lung cancer. Electronically Signed: Sheron Toshia, at 18:56 EDT Tel , Service support , oncology- Dr Engel Hospice and palliative care- Dr Moore Operations: None Procedures: None Summary of Care Provided: The patient is a 68 year old F with past medical history of endometrial cancer status post endometrial resection with metastasis to the liver and lung as well as the vagina cough. She was admitted through the ED on 11/22/2018 with a complaint of shortness of breath. Patient had a had right-sided pleural effusion which had been drained in the ED by the surgeon prior to admission. She had, shortness of breath and was subsequently admitted for the shortness of breath. She was found to have JAM with creatinine of 2.56 and also complained of significant fatigue and weakness. Patient had had radiation for the vaginal metastasis up in [facility] and had followed up with her oncologist Dr. Engel about 2 weeks prior to admission when she had been advised that she could undergo immunotherapy. On admission, she was also found to have elevated LFTs which is likely due to the liver metastasis. She was admitted and managed for acute hypoxic respiratory insufficiency likely due to the pleural effusion, UTI and JAM. She was hydrated with IV fluids and was eventually started on IV ceftriaxone. Patient was noted to be very frail during this admission. She gradually became even more edematous and despite hydration, kidney function did not significantly improved. Case was discussed with her oncologist who stated that hospice and palliative had not been discussed with patient yet had because she had been lost to follow-up until 2 weeks prior to admission. Hospitalist discussed hospice and palliative care with patient and she was open to this. Patient's poor prognosis and poor performance status was discussed with her as well as her family. CODE STATUS was discussed with patient and she was agreeable to changing her CODE STATUS to DNR CCA. Oncology evaluated patient on 11/24/2018 and counseled patient about her very poor performance status and poor prognosis. Patient and family were again counseled by hospice and palliative care and they were agreeable for patient going to inpatient hospice on 11/24/2018. She was discharged to inpatient hospice on 11/24/2018. Patient was seen and examined prior to discharge. She was very weak and frail feeling very tired. Review of systems otherwise negative. Labs and vitals reviewed. o/e: Vital Signs Height 5 ft 6 in Weight: 196 lb 6.91 oz Weight in Pounds 196.4 lbs Pulse Ox 92 Temperature 97.8 F Pulse Rate 106 Respiratory Rate 20 Blood Pressure 122/63 Blood Pressure Position Semi-Fowlers [] General: Alert, Cooperative, Lethargic HEENT: Atraumatic, PERRLA, EOMI, Normocephalic, - - jaundiced sclera Oral: Dry Mucosa Neck: Supple, No JVD, Negative Carotid Bruits Lungs: - - decreased breath sounds bibasally, no wheezes. Few crackles bibasally. On 2L of oxygen. Cardiovascular: Regular rate, Regular Rhythm, Normal S1, Normal S2, No murmurs Abdomen: Bowel Sounds Present, Soft, Non Tender, Non-Distended, No Hepato-splenomegaly Extremities: No cyanosis, No edema, Capillary Refill Less than 3 Seconds Skin: No rashes, No breakdown Musculoskeletal: No Tenderness to Palpation of Joints or Extremities Lymphatic: No Cervical, Supraclavicular, or Inguinal Adenopathy Neurological: Cranial nerves II-XII grossly intact, Neuro grossly intact, Motor Exam 5/5 strength throughout Psych/Mental Status: - - very weak and lethargic Plan is for patient to be discharged to inpatient hospice. Patient Problems: Active and Suspected Problems Depression (Acute) GERD (gastroesophageal reflux disease) (Acute) Endometrial cancer (Acute) Pleural effusion (Acute) - Physical Exam Vital Signs Temp Pulse Resp BP Pulse Ox 97.8 F 106 H 20 H 122/63 H 92 11/24/18 13:25 11/24/18 13:25 11/24/18 13:25 11/24/18 13:25 11/24/18 13:25 Oxygen Flow Rate (L/min) 3 Oxygen Delivery Method Nasal Cannula Weight: 196 lb 6.91 oz Body Mass Index (BMI) 31.6 Intake and Output for Last 24 Hours 11/22/18 11/23/18 11/24/18 23:59 23:59 23:59 Intake Total 950 / 950 4041 / 4041 1822 / 1822 Output Total 0 / 0 450 / 450 165 / 165 Balance 950 / 950 3591 / 3591 1657 / 1657 Microbiology Past 72 Hours 11/22/18 16:45 Urine Culture - Preliminary Urine, Clean Catch Culture exhibits no growth. Laboratory Tests Past 24 Hrs 11/24/18 11/24/18 05:20 05:20 WBC 14.3 H RBC 3.78 L Hgb 8.6 L Hct 27.7 L MCV 73.3 L MCH 22.8 L MCHC 31.0 L RDW 21.6 H RDW Differential 55.5 H Plt Count 63 L Immature Gran % (Auto) 12.000 H Neut % (Auto) 68.0 Lymph % (Auto) 8.5 L [place] % (Auto) 8.7 Eos % (Auto) 1.1 Baso % (Auto) 1.7 H Absolute Neuts (auto) 9.7 H Absolute Lymphs (auto) 1.22 Total Counted Not Reportable Differential Comment SCAN Platelet Estimate MOD DEC Plt Morphology Comment LARGE Polychromasia 1+ Hypochromasia 1+ Anisocytosis 1+ Microcytosis 1+ Sodium 134 L Potassium 4.3 Chloride 100 Carbon Dioxide 24.0 Anion Gap 10 BUN 50 H Creatinine 2.30 H Estim Creat Clear Calc 22.22 Est GFR (MDRD) Af Amer 27 L Est GFR (MDRD) Non-Af 22 L BUN/Creatinine Ratio 21.7 H Glucose 82 Calcium 8.7 Discharge Diet: Low fat/ Low Cholesterol Home Medications: Medications to take at Discharge Diclofenac [Voltaren] 75 mg PO BID 11/22/18 Escitalopram Oxalate [Lexapro] 20 mg PO QHS 11/22/18 Famotidine [Pepcid] 20 mg PO QHS PRN 11/22/18 Gabapentin [Neurontin] 800 mg PO BID 11/22/18 Multivitamin [Multivitamins] 1 each PO DAILY 11/22/18 Oxycodone HCl/Acetaminophen [Percocet 5-325 mg Tablet] 1 each PO Q8H PRN 11/22/18 Oxycodone [Oxyir] 5 mg PO Q8H PRN PRN 11/22/18 Prochlorperazine Maleate [Compazine] 10 mg PO Q6H PRN 11/22/18 Senna/Docusate Sodium [Senokot-S, Densise-Colace] 2 tablet PO QHS PRN PRN 11/22/18 Primary Care Physician: Nemesio Nguyen MD [Primary Care Provider] - Please follow up with your Primary Care Physician in: one week Disposition: Hospice Medical Facility Minutes spent on discharge:: 50 Patient Condition:: Poor Medical Necessity - Tobacco Use Smoking Status: Never smoker Tobacco Use: Non-smoker, Secondhand Meaningful Use Info Meaningful Use Diagnoses (Choose all that apply): None applicable Code Visit Inpatient E&M: 31606 Disch Hosp
[2018-11-24] MEDS: Ipratropium/Albuterol Sulfate 3 ML AMPUL.NEB INHALATION (15:17)
--- NOTE | 2018-11-24 16:12 | NURSING ---
home meds retrieved from med room. verified count of narcotics, count accurate. meds sent with transport.
== END 2018-11-24 15:58 | disposition hospice, inpatient (51) | DRG 189 ==
LOC: ED 16:53 → PCU 19:57
PROVIDERS: Admitting Provider Family Medicine; Emergency Provider Emergency Medicine; Family Provider Family Medicine; PCP Family Medicine; Referring Provider Family Medicine; Visit Provider Student in an Organized Health Care Education/Training Program
DX: J96.01 Acute respiratory failure with hypoxia (principal); N17.9 Acute kidney failure, unspecified; C78.01 Secondary malignant neoplasm of right lung; C78.7 Secondary malignant neoplasm of liver and intrahepatic bile duct; J91.0 Malignant pleural effusion; C79.82 Secondary malignant neoplasm of genital organs; N39.0 Urinary tract infection, site not specified; F32.9 Major depressive disorder, single episode, unspecified; K21.9 Gastro-esophageal reflux disease without esophagitis; Z92.3 Personal history of irradiation; C54.1 Malignant neoplasm of endometrium; D50.0 Iron deficiency anemia secondary to blood loss (chronic); D69.6 Thrombocytopenia, unspecified
CPT/HCPCS: 36415; 71045; 80048; 80053; 81001; 83735; 84100; 84484; 85025; 85610; 85730; 86850; 86900; 87086; 88108; 88305; 88313; 88341; 88342; 93005; 94640; 97802; 99285; J1756; J7030; J7040; A4216; J2405